=== PATIENT | male | born 1970 | race Caucasian/White ===

== ENCOUNTER 2020-06-13 10:11 | Emergency (ER) | payer OTHER, SELFPAY ==
[2020-06-13] VITALS (13 sets, daily range): BP systolic 134–190; BP diastolic 70–108; PULSE 63–85; RESP 14–16; TEMP 36.6; O2SAT 94–100; BMI 32.5
--- NOTE | 2020-06-13 10:21 | ED.MALEGU ---
HPI - Male Genitourinary General Chief complaint: Urogenital-Male Stated complaint: pain right side back,stomach tender,urine is dark Time Seen by Provider: 06/13/20 10:21 Source: patient and family () Mode of arrival: Ambulatory Limitations: no limitations History of Present Illness HPI Narrative: This is a 49-year-old male who comes to the emergency department with complaint of right flank pain that started Wednesday, patient states it was quite severe and overnight it resolved. And then returned last night. Patient states that it has now moved to the anterior abdomen but is still present in the right flank. He states he has not had any fevers or chills. He has been nauseated but has not had emesis. Patient states he has not had a bowel movement for about 24 hours but believes his last bowel movement was normal. He did note that his urine has been very dark. He has not appreciated any urinary frequency, hesitancy or urgency and denies any discharge or testicular pain. He also denies any rash or skin changes. Patient did state that he did note blood in the toilet at 1 point he is not sure the exact source he thought it may be hemorrhoids, he did not have a bowel movement at that time. Patient does have a history of hypertension, dyslipidemia as well as depression and anxiety. States he has had multiple surgeries including surgery for amblyopia, a lateral duct cyst, hernia repair as an as well as a surgery on his penis which he does not recollect the exact nature. He states he is allergic to lisinopril and penicillin. States he uses THC intermittently, denies any tobacco, alcohol or other illicit. His primary care is Dr. Matos on [facility]. Related Data Previous Rx's Medication Instructions Recorded oxycodone 5 mg PO Q4H PRN #20 tab 06/13/20 tamsulosin [Flomax] 0.4 mg PO DAILY #7 cap 06/13/20 Allergies Allergy/AdvReac Type Severity Reaction Status Date / Time lisinopril Allergy Verified 06/13/20 10:19 Penicillins Allergy Verified 06/13/20 10:19 Review of Systems Review of Systems ROS Unobtainable: All systems reviewed & are unremarkable except as noted in HPI and below Constitutional Constitutional: Denies body ache(s), Denies chills and Denies fever(s) Gastrointestinal Gastrointestinal: Reports abdominal pain, Denies melena, Reports change in bowel habits, Denies diarrhea, Reports nausea, Denies vomiting and Denies hematemesis Genitourinary Genitourinary: Reports as per HPI, Denies difficulty urinating, Denies dysuria, Denies genital pain, Reports flank pain, Denies nocturia, Denies scrotal swelling, Denies testicular pain, Denies urinary frequency, Denies urinary hesitancy, Denies urinary incontinence and Denies urinary urgency Genitourinary: Reports as per HPI, Denies urinary frequency, Denies dysuria, Denies nocturia, Reports flank pain, Denies urinary incontinence, Denies urinary hesitancy and Denies urinary urgency Integumentary/Breasts Skin/Breast: Denies new lesions, Denies erythema, Denies rash and Denies sores Patient History Medical History (Updated 06/13/20 @ 12:03 by Mary Kay Morales DO) Anxiety (Acute) Depression (Acute) Dyslipidemia (Acute) Hypertension (Acute) Social History (Updated 06/13/20 @ 10:37 by Mary Kay Morales DO) marital status: other: Lives on [facility] Smoking Status: Unknown if ever smoked Smoking Status: Unknown if ever smoked alcohol intake frequency: a few times a week Substance Use Type: marijuana Exam Narrative Exam Narrative: GENERAL: Alert and oriented x three, obese male in moderate distress HEENT: Head normocephalic, atraumatic, EOMI, pupils reactive, face symmetric, moist mucous membranes NECK: Supple, full range of motion CARDIOVASCULAR: Regular rate and rhythm without murmurs, rubs or gallops. RESPIRATORY: Breath sounds equal bilaterally, no wheezes rales or rhonchi. ABDOMEN: Soft, positive for moderate right upper quadrant tenderness. Normoactive bowel sounds all 4 quadrants. No guarding or rebound, rigidity, no mass, nondistended. No bruit or pulsatile mass. : Mild right CVA tenderness EXTREMITIES: Normal range of motion, no clubbing or edema. Neurovascularly intact NEUROLOGICAL: Cranial nerves II through XII grossly intact. Moving all extremities SKIN: Warm, dry, no petechiae, no rashes or lesions. Initial Vital Signs Initial Vital Signs: Vital Signs Temperature 97.9 F 06/13/20 10:11 Pulse Rate 83 06/13/20 10:11 Respiratory Rate 14 06/13/20 10:11 Blood Pressure 190/104 H 06/13/20 10:11 Pulse Oximetry 98 06/13/20 10:11 Course Orders Ordered: ED Orders 06/13/20 10:22 Urine Culture Stat Urine Microscopic Stat 06/13/20 10:31 US abdomen complete Stat 06/13/20 10:45 Complete Blood Count AUTO DIFF Stat Comprehensive Metabolic Panel Stat Lipase Stat 06/13/20 13:10 CT kidney ureter bladder (KUB) Stat Discontinued Medications Sodium Chloride (Normal Saline 0.9%) 1,000 mls @ 1,000 mls/hr IV BOLUS ONE Stop: 06/13/20 11:30 Last Infusion: 06/13/20 11:48 Dose: 0 mls/hr Documented by: Admin: 06/13/20 10:40 Dose: 1,000 mls/hr Documented by: DAVID Ketorolac Tromethamine (Toradol) 15 mg IV NOW ONE Stop: 06/13/20 10:32 Last Admin: 06/13/20 10:40 Dose: 15 mg Documented by: DAVID Morphine Sulfate (Morphine) 4 mg IV NOW ONE Stop: 06/13/20 12:20 Last Admin: 06/13/20 12:24 Dose: 4 mg Documented by: RAMO Ondansetron HCl (Zofran) 4 mg IV NOW ONE Stop: 06/13/20 10:32 Last Admin: 06/13/20 10:40 Dose: 4 mg Documented by: DAVID Oxycodone HCl (Percolone) 5 mg PO NOW ONE Stop: 06/13/20 13:11 Last Admin: 06/13/20 13:37 Dose: 5 mg Documented by: RAMO Tamsulosin HCl (Flomax) 0.4 mg PO NOW ONE Stop: 06/13/20 12:36 Last Admin: 06/13/20 12:44 Dose: 0.4 mg Documented by: RAMO Reevaluation(s) Reevaluation #1: recheck after medications, updated patient on lab findings. Time: 11:12 Reevaluation #2: pain is much improved. Time: 13:12 Reevaluation #3: Reviewed patient's CT findings, he does have a 6 mm stone. Discussed he does need keep an eye on his renal function as were unclear if this is his normal baseline or elevated from the kidney stone. His blood pressures improved in the department. Plan for prescription for narcotic pain medication as well as Tylenol given instructions to avoid ibuprofen if able. Also given a referral for Urology and return precautions. Patient and are both at bedside and comfortable with this plan at this time. We also discussed his patient lives on [facility] may wish to stay locally overnight to see how he does before returning home. Time: 14:12 Vital Signs Vital signs: Vital Signs - 8 hr 06/13/20 10:11 06/13/20 10:15 06/13/20 10:17 Temperature 97.9 F Pulse Rate 83 85 Respiratory Rate 14 Blood Pressure 190/104 H 190/104 H Pulse Oximetry 98 98 100 06/13/20 11:30 06/13/20 11:31 06/13/20 11:32 Temperature Pulse Rate 76 78 78 Respiratory Rate 16 Blood Pressure 138/97 H 138/97 H Pulse Oximetry 98 98 98 06/13/20 12:00 06/13/20 12:30 06/13/20 12:32 Temperature Pulse Rate 77 71 Respiratory Rate Blood Pressure 182/108 H Pulse Oximetry 94 99 99 06/13/20 13:00 06/13/20 13:24 06/13/20 13:30 Temperature Pulse Rate 63 75 72 Respiratory Rate Blood Pressure 144/75 H 154/87 H 137/80 Pulse Oximetry 97 98 96 MDM - Male Genitourinary Lab Data Attestation: I reviewed the patient's lab results. Result diagrams: 06/13/20 10:45 06/13/20 10:45 Labs: Lab Results 06/13/20 06/13/20 06/13/20 Range/Units 10:22 10:45 10:45 WBC 13.7 H (4.5-11.0) X10^3/uL RBC 5.01 (4.5-5.9) X10^6/uL Hgb 15.2 (13.5-17.5) g/dL Hct 46.0 (41-53) % MCV 91.9 (80-100) fL MCH 30.4 (26-34) PG MCHC 33.1 (30-36) % RDW 13.9 (11.6-14.8) % Plt Count 217 (150-400) X10^3/uL Neut % (Auto) 82.4 H (50-75) % Lymph % (Auto) 9.3 L (25-40) % [place] % (Auto) 7.2 (3-14) % Eos % (Auto) 0.7 L (2-4) % Baso % (Auto) 0.4 (0-2) % Neut # (Auto) 53484 H (3611-8684) /uL Lymph # (Auto) 1300 (1533-2372) /uL [place] # (Auto) 1000 H (0-900) /uL Eos # (Auto) 100 (0-450) /uL Baso # (Auto) 100 (0-100) /uL Sodium 141 (137-145) mmol/L Potassium 3.8 (3.4-5.1) mmol/L Chloride 104 (98-107) mmol/L Carbon Dioxide 25 (22-32) mmol/L BUN 23 H (9-20) mg/dL Creatinine 1.45 H (0.66-1.25) mg/dL Estimated GFR 51.5 L (>60) mL/min BUN/Creatinine Ratio 15.9 (6-22) Glucose 125 H (70-100) mg/dL Calcium 9.9 (8.4-10.2) mg/dL Total Bilirubin 0.9 (0.2-1.3) mg/dL AST 38 (17-59) IU/L ALT 65 H (<50) IU/L Alkaline Phosphatase 71 (38-126) U/L Total Protein 8.4 H (6.3-8.2) g/dL Albumin 4.9 (3.5-5.0) g/dL Globulin 3.5 (1.7-4.1) g/dL Albumin/Globulin Ratio 1.4 (1.0-2.8) Lipase 96 (23-300) U/L Urine RBC 1-5/hpf (0-5/HPF) Urine WBC 5-10/hpf H (0-5/HPF) Urine Bacteria None seen (None) Urine Mucus 1+ H (Negative) Ur Culture Indicated? Specimen cultured Urine Dip Bedside Urine Glucose Negative Bedside Urine Bilirubin - Negative Bedside Urine Ketone - Negative Urine Specific [place] 1.030 Bedside Urine Occult Blood +++ Bedside Urine pH 6.0 Bedside Urine Protein +/- 15 Bedside Urine Urobilinogen - Negative Bedside Urine Nitrite - Negative Bedside Urine Leukocytes - Negative Esterase Imaging Data US - abdomen: Radiologist's Impression: [address] [address] Ultrasound Report Signed Patient: Jason Washburn KMR#: [id number] : 1970Acct:[id number] Age/Sex: 49 / MDate of Service: 06/13/20 Loc: ED Accession Number: [id number] Procedure: US abdomen complete Ordering Provider: Mary Kay Morales D.O. PROCEDURE: US ABDOMEN COMPLETE INDICATIONS: RIGHT FLANK PAIN AND RIGHT UPPER QUADRANT TENDERNESS TECHNIQUE: Real-time scanning was performed of the abdominal and retroperitoneal organs, with image documentation. COMPARISON: None. FINDINGS: Liver: The liver demonstrates normal size. The liver demonstrates generalized increased echogenicity. This decreases ultrasound sensitivity for detection of hepatic masses. Apparent focal fatty sparing can be seen adjacent to the gallbladder. Gallbladder: No findings of gallstones or sludge are seen. The gallbladder wall is not thickened, measuring 3 mm or less. No specific pericholecystic fluid is seen. The sonographic Holm sign is negative. Biliary ducts: Intrahepatic bile ducts are non-dilated. Extrahepatic bile duct caliber measures 5 mm. Normal is 6-7 mm or less in diameter, or 10 mm or less post-cholecystectomy. Pancreas: Visualized portions of the pancreas are sonographically normal. Spleen: Spleen is normal in size and homogeneous in echotexture. Kidneys: Kidneys are normal in size and echotexture. Right kidney measures 13.4 cm long; left kidney measures 12.7 cm long. No solid masses. Inferior pole of the right kidney, there is a 3.8 cm simple cyst seen. Within the mid inferior aspect of the left kidney, there is a large cystic focus that measures 6.2 x 4.6 x 5.1 cm. Moderate bilateral hydronephrosis is seen. Shadowing stones can be seen involving each kidney. Aorta: Visualized aorta is normal in caliber at less than 3 cm. Iliacs: Not seen. IVC: Intrahepatic inferior vena cava is patent. Miscellaneous: No free abdominal fluid. IMPRESSION: Moderate bilateral hydronephrosis. There is a 3.8 cm simple appearing right renal cyst. Within the left kidney, there is a likely additional prominent cyst seen, although differential diagnosis would include a prominent peripelvic cyst. Non-obstructing bilateral renal stones are seen. The liver demonstrates increased echogenicity. This finding is nonspecific, yet it is most commonly attributed to fatty infiltration. Dictated by: Henok Ward M.D. on 06/13/2020 at 10:47 Approved by: Henok Ward M.D. on 06/13/2020 at 10:[address]: Radiologist's Impression: [address] [address] [address] Scan Report Signed Patient: Jason Washburn KMR#: [id number] : 1970Acct:[id number] Age/Sex: 49 / MDate of Service: 06/13/20 Loc: ED Accession Number: [id number] Procedure: CT kidney ureter bladder (KUB) Ordering Provider: Mary Kay Morales D.O. PROCEDURE: CT KIDNEY URETER BLADDER (KUB) INDICATIONS: kidney stone TECHNIQUE: Noncontrast 5 mm thick sections acquired from the diaphragms to the symphysis. 5 mm thick coronal and sagittal reformats were then performed. For radiation dose reduction, the following was used: automated exposure control, adjustment of mA and/or kV according to patient size. COMPARISON: None. FINDINGS: Image quality: Excellent. Lung bases: Lung bases are clear. Heart size is normal. Atherosclerotic calcifications noted in the visualized coronary vasculature. Urinary system: Both kidneys are normal in size. 6 millimeter stone in the proximal right ureter causing moderate right-sided hydronephrosis. 1.3 x 1.5 by 1.0 centimeter nonobstructing cluster of stones noted in the upper pole of the left kidney. 6 millimeter and 5 millimeter nonobstructing stones noted in the midpole of the left kidney. Bladder wall thickness is normal; no calcified bladder stones. Other solid organs: Liver is normal in size. Gallbladder is within normal limits. Pancreas is normal in contours. Spleen is normal in size. No adrenal nodules. Peritoneum and bowel: Unenhanced bowel loops demonstrate normal wall thickness and caliber. No free fluid or air. The appendix is normal. Nodes and vessels: No retroperitoneal or mesenteric adenopathy by size criteria. Aorta and inferior vena cava are normal in caliber. Scattered atherosclerotic calcifications involving the abdominal and pelvic vasculature. Abdominal wall: No ventral hernias. Pelvis: No free pelvic fluid. No inguinal adenopathy. Small fat containing left inguinal hernia. Bones: No suspicious bony lesions. No vertebral body compression fractures. Spine degenerative disc disease and facet arthropathy. IMPRESSION: 1. 6 millimeter stone in the proximal right ureter causing moderate right-sided hydronephrosis. 2. Multiple nonobstructing left renal stones. Dictated by: Ashley Myers MD, PhD on 06/13/2020 at 13:31 Approved by: Ashley Myers MD, PhD on 06/13/2020 at 13:50 [facility] Narrative Medical decision making narrative: Patients BP is quite elevated initially on evaluation, he has not had all of his BP meds today. Will recheck after pain medication, patient proved with Toradol but then his symptoms recurred. He has improved significantly after dose of morphine and 1 dose of oral pain medication. CT abdomen and pelvis was obtained as patient lives on [facility] and returning if he had worsening symptoms would be quite difficult for the patient and possibly impossible overnight. A 6 mm stone is noted on the proximal right ureter, right-sided hydronephrosis. Patient and I also discussed that he has what appear to be stones in both kidneys as well as renal cyst that is noted on ultrasound. We also discussed that patient does need follow-up to make sure his renal function improves or stays stable and that his stone is treated adequately, he was started on Flomax given a prescription for oxycodone. Urine was cultured although he has not had any infectious symptoms and is negative for nitrates and leuks, will hold any antibiotics at this time. Discharge Plan Departure Patient Disposition: Home Clinical Impression: Kidney stone, Cyst of right kidney, Renal cyst, left Instructions: DI for Kidney Stones Activity Restrictions/Additional Instructions: Follow-up with primary care or Urology if your symptoms have not resolved in the next 2-3 days. Your creatinine is slightly elevated I would recommend having a recheck of her renal function in the next week. Your imaging shows cysts bilaterally and also stones in the kidney themselves. Take flomax once daily. You may continue with Tylenol up to a 1000 mg every 8 hours as needed for pain, you may take 3000 mg total in 24 hours. If this is not adequate for pain control you may take pain medication as prescribed this medication can make you sleepy do not drive, perform hazardous activities or make any major decisions while taking it. I would recommend taking a stool softener while taking any narcotic pain medication. Return to the ER for fevers greater 100.4 F, uncontrolled pain, persistent vomiting, black or bloody stools, new weakness, inability urinate or other new or concerning symptoms. Prescriptions: New tamsulosin [Flomax] 0.4 mg capsule 0.4 mg PO DAILY Qty: 7 RF: 0 oxycodone 5 mg tablet 5 mg PO Q4H PRN (Reason: pain) Qty: 20 RF: 0 Referrals: Gato Chadwick MD [Physician] - Ronnie Matos MD [Primary Care Provider] -
--- NOTE | 2020-06-13 10:31 | DI.US.S_ITS ---
PROCEDURE: US ABDOMEN COMPLETE INDICATIONS: RIGHT FLANK PAIN AND RIGHT UPPER QUADRANT TENDERNESS TECHNIQUE: Real-time scanning was performed of the abdominal and retroperitoneal organs, with image documentation. COMPARISON: None. FINDINGS: Liver: The liver demonstrates normal size. The liver demonstrates generalized increased echogenicity. This decreases ultrasound sensitivity for detection of hepatic masses. Apparent focal fatty sparing can be seen adjacent to the gallbladder. Gallbladder: No findings of gallstones or sludge are seen. The gallbladder wall is not thickened, measuring 3 mm or less. No specific pericholecystic fluid is seen. The sonographic Holm sign is negative. Biliary ducts: Intrahepatic bile ducts are non-dilated. Extrahepatic bile duct caliber measures 5 mm. Normal is 6-7 mm or less in diameter, or 10 mm or less post-cholecystectomy. Pancreas: Visualized portions of the pancreas are sonographically normal. Spleen: Spleen is normal in size and homogeneous in echotexture. Kidneys: Kidneys are normal in size and echotexture. Right kidney measures 13.4 cm long; left kidney measures 12.7 cm long. No solid masses. Inferior pole of the right kidney, there is a 3.8 cm simple cyst seen. Within the mid inferior aspect of the left kidney, there is a large cystic focus that measures 6.2 x 4.6 x 5.1 cm. Moderate bilateral hydronephrosis is seen. Shadowing stones can be seen involving each kidney. Aorta: Visualized aorta is normal in caliber at less than 3 cm. Iliacs: Not seen. IVC: Intrahepatic inferior vena cava is patent. Miscellaneous: No free abdominal fluid. IMPRESSION: Moderate bilateral hydronephrosis. There is a 3.8 cm simple appearing right renal cyst. Within the left kidney, there is a likely additional prominent cyst seen, although differential diagnosis would include a prominent peripelvic cyst. Non-obstructing bilateral renal stones are seen. The liver demonstrates increased echogenicity. This finding is nonspecific, yet it is most commonly attributed to fatty infiltration. Dictated by: Henok Ward M.D. on 06/13/2020 at 10:47 Approved by: Henok Ward M.D. on 06/13/2020 at 10:50
[2020-06-13] MEDS: KETOROLAC 60 MG/2 ML VIAL 15 MG IV (10:40)
[2020-06-13] MEDS: ONDANSETRON 4 MG/2 ML INJ IV (10:40)
[2020-06-13] MEDS: SODIUM CHLORIDE 0.9% 1,000 ML 1000 ML IV (10:40)
[2020-06-13 10:45] LABS: Bacteria Urine None Seen
[2020-06-13 10:55] LABS: Add Manual Diff / Slide Review NO; Basophils Absolute Auto 100 /uL (0-100); Basophils Percent Auto 0.4 % (0-2); Eosinophils Absolute Auto 100 /uL (0-450); Eosinophils Percent Auto 0.7 % (2-4); Hemoglobin 15.2 g/dL (13.5-17.5); Lymphocytes Absolute Auto 1300 /uL (1100-4500); Lymphocytes Percent Auto 9.3 % (25-40); Mean Corpuscular HGB Conc 33.1 % (30-36); Mean Corpuscular Hemoglobin 30.4 PG (26-34); Mean Corpuscular Volume 91.9 fL (80-100); Monocytes Absolute Auto 1000 /uL (0-900); Monocytes Percent Auto 7.2 % (3-14); Neutrophils Absolute Auto 11300 /uL (1500-7000); Neutrophils Percent Auto 82.4 % (50-75); Platelet Count 217 X10^3/uL (150-400); Red Blood Cell Count 5.01 X10^6/uL (4.5-5.9); Red Cell Distribution Width 13.9 % (11.6-14.8); White Blood Cell Count 13.7 X10^3/uL (4.5-11.0)
[2020-06-13 11:03] LABS: Culture Indicated Urine Specimen Cultured; Mucus Urine 1+ (Negative); RBC Urine 1-5/HPF (0-5/HPF); WBC Urine 5-10/HPF (0-5/HPF)
[2020-06-13 11:07] LABS: Alanine Aminotransferase 65 IU/L (<50); Albumin 4.9 g/dL (3.5-5.0); Albumin Globulin Ratio 1.4 (1.0-2.8); Alkaline Phosphatase 71 U/L (38-126); Aspartate Aminotransferase 38 IU/L (17-59); BUN Creatinine Ratio 15.9 (6-22); Bilirubin Total 0.9 mg/dL (0.2-1.3); Blood Urea Nitrogen 23 mg/dL (9-20); Calcium 9.9 mg/dL (8.4-10.2); Carbon Dioxide 25 mmol/L (22-32); Chloride 104 mmol/L (98-107); Estimated Glomerular Filt Rate 51.5 mL/min (>60); Globulin 3.5 g/dL (1.7-4.1); Glucose 125 mg/dL (70-100); HEMOLYSIS < 15 (0-50); Lipase 96 U/L (23-300); Potassium 3.8 mmol/L (3.4-5.1); Sodium 141 mmol/L (137-145); Total Protein 8.4 g/dL (6.3-8.2)
[2020-06-13] MEDS: MORPHINE 4 MG/ML INJ IV (12:24)
[2020-06-13] MEDS: TAMSULOSIN 0.4 MG CAPSULE PO (12:44)
--- NOTE | 2020-06-13 13:10 | DI.CT.S_ITS ---
PROCEDURE: CT KIDNEY URETER BLADDER (KUB) INDICATIONS: kidney stone TECHNIQUE: Noncontrast 5 mm thick sections acquired from the diaphragms to the symphysis. 5 mm thick coronal and sagittal reformats were then performed. For radiation dose reduction, the following was used: automated exposure control, adjustment of mA and/or kV according to patient size. COMPARISON: None. FINDINGS: Image quality: Excellent. Lung bases: Lung bases are clear. Heart size is normal. Atherosclerotic calcifications noted in the visualized coronary vasculature. Urinary system: Both kidneys are normal in size. 6 millimeter stone in the proximal right ureter causing moderate right-sided hydronephrosis. 1.3 x 1.5 by 1.0 centimeter nonobstructing cluster of stones noted in the upper pole of the left kidney. 6 millimeter and 5 millimeter nonobstructing stones noted in the midpole of the left kidney. Bladder wall thickness is normal; no calcified bladder stones. Other solid organs: Liver is normal in size. Gallbladder is within normal limits. Pancreas is normal in contours. Spleen is normal in size. No adrenal nodules. Peritoneum and bowel: Unenhanced bowel loops demonstrate normal wall thickness and caliber. No free fluid or air. The appendix is normal. Nodes and vessels: No retroperitoneal or mesenteric adenopathy by size criteria. Aorta and inferior vena cava are normal in caliber. Scattered atherosclerotic calcifications involving the abdominal and pelvic vasculature. Abdominal wall: No ventral hernias. Pelvis: No free pelvic fluid. No inguinal adenopathy. Small fat containing left inguinal hernia. Bones: No suspicious bony lesions. No vertebral body compression fractures. Spine degenerative disc disease and facet arthropathy. IMPRESSION: 1. 6 millimeter stone in the proximal right ureter causing moderate right-sided hydronephrosis. 2. Multiple nonobstructing left renal stones. Dictated by: Ashley Myers MD, PhD on 06/13/2020 at 13:31 Approved by: Ashley Myers MD, PhD on 06/13/2020 at 13:50
[2020-06-13] MEDS: OXYCODONE IR 5 MG TABLET PO (13:37)
== END 2020-06-13 14:27 | disposition home or self-care (01) ==
PROVIDERS: Emergency Provider Emergency Medicine; PCP Family Medicine
DX: N20.0 Calculus of kidney (principal); N28.1 Cyst of kidney, acquired; I10 Essential (primary) hypertension; R11.0 Nausea; F41.9 Anxiety disorder, unspecified; F32.9 Major depressive disorder, single episode, unspecified; E66.9 Obesity, unspecified
CPT/HCPCS: 36415; 74176; 76700; 80053; 81003; 81015; 83690; 85025; 87086; 96361; 96374; 96375; 99284; 99285; J1885; J2270; J2405

== ENCOUNTER → 2021-03-27 08:05 | Outpatient (CLI) | payer OTHER, SELFPAY ==
[2021-03-27 19:20] LABS: Alanine Aminotransferase 41 IU/L (<50); Albumin 4.5 g/dL (3.5-5.0); Albumin Globulin Ratio 1.5 (1.0-2.8); Alkaline Phosphatase 73 U/L (38-126); Aspartate Aminotransferase 38 IU/L (17-59); BUN Creatinine Ratio 19.1 (6-22); Bilirubin Total 1.1 mg/dL (0.2-1.3); Blood Urea Nitrogen 18 mg/dL (9-20); Carbon Dioxide 27 mmol/L (22-32); Chloride 103 mmol/L (98-107); Cholesterol 152 mg/dL (140-199); Estimated Glomerular Filt Rate > 60.0 mL/min (>60); Globulin 3.1 g/dL (1.7-4.1); Glucose 102 mg/dL (70-100); HDL Cholesterol 50 mg/dL (40-60); HEMOLYSIS < 15 (0-50); LDL Cholesterol Calculated 85 mg/dL (<100); Potassium 4.2 mmol/L (3.4-5.1); Sodium 140 mmol/L (137-145); Total Protein 7.6 g/dL (6.3-8.2); Triglycerides 87 mg/dL (35-150)
[2021-03-27 19:43] LABS: Add Manual Diff / Slide Review NO; Basophils Absolute Auto 0 /uL (0-100); Basophils Percent Auto 0.6 % (0-2); Eosinophils Absolute Auto 300 /uL (0-450); Eosinophils Percent Auto 4.1 % (2-4); Hematocrit 47.6 % (41-53); Lymphocytes Absolute Auto 2100 /uL (1100-4500); Lymphocytes Percent Auto 27.6 % (25-40); Mean Corpuscular HGB Conc 33.7 % (30-36); Mean Corpuscular Hemoglobin 31.7 PG (26-34); Mean Corpuscular Volume 93.9 fL (80-100); Monocytes Absolute Auto 700 /uL (0-900); Monocytes Percent Auto 8.7 % (3-14); Neutrophils Absolute Auto 4600 /uL (1500-7000); Platelet Count 202 X10^3/uL (150-400); Red Blood Cell Count 5.07 X10^6/uL (4.5-5.9); Red Cell Distribution Width 13.8 % (11.6-14.8); White Blood Cell Count 7.7 X10^3/uL (4.5-11.0)
[2021-03-27 20:07] LABS: Hemoglobin A1C% w Est Avg Glu 5.3 % (4.0-6.0)
== END ==
PROVIDERS: PCP Family Medicine; Visit Provider Family Medicine
DX: E78.5 Hyperlipidemia, unspecified (principal); F32.9 Major depressive disorder, single episode, unspecified; F41.9 Anxiety disorder, unspecified; I10 Essential (primary) hypertension; R73.01 Impaired fasting glucose
CPT/HCPCS: 80053; 80061; 83036; 85025

== ENCOUNTER 2022-02-19 14:18 | Emergency (ER) | payer OTHER, SELFPAY ==
[2022-02-19] VITALS (8 sets, daily range): BP systolic 177–206; BP diastolic 112–119; PULSE 79–91; RESP 15–22; TEMP 36.4; O2SAT 94–98; BMI 34.3
--- NOTE | 2022-02-19 14:28 | DI.RAD.S_ITS ---
PROCEDURE: XR CHEST 2V INDICATIONS: shortness of breath TECHNIQUE: 2 views of the chest were acquired. COMPARISON: None. FINDINGS: Surgical changes and devices: None. Lungs and pleura: Mild left basilar atelectasis. Lungs are otherwise clear. No pleural effusions or pneumothorax. Mediastinum: Mediastinal contours are normal. Heart size is normal. Bones and chest wall: No suspicious bony abnormalities. Soft tissues appear unremarkable. IMPRESSION: No acute cardiopulmonary disease. Dictated by: Debi Paulino M.D. on 02/19/2022 at 15:02 Approved by: Debi Paulino M.D. on 02/19/2022 at 15:05
[2022-02-19 14:47] LABS: Add Manual Diff / Slide Review NO; Basophils Absolute Auto 100 /uL (0-100); Basophils Percent Auto 0.9 % (0-2); Eosinophils Absolute Auto 300 /uL (0-450); Eosinophils Percent Auto 3.2 % (2-4); Hematocrit 47.3 % (41-53); Hemoglobin 15.9 g/dL (13.5-17.5); Lymphocytes Absolute Auto 2300 /uL (1100-4500); Lymphocytes Percent Auto 28.6 % (25-40); Mean Corpuscular HGB Conc 33.7 % (30-36); Mean Corpuscular Hemoglobin 30.7 PG (26-34); Mean Corpuscular Volume 90.9 fL (80-100); Monocytes Absolute Auto 600 /uL (0-900); Monocytes Percent Auto 7.5 % (3-14); Neutrophils Absolute Auto 4800 /uL (1500-7000); Neutrophils Percent Auto 59.8 % (50-75); Platelet Count 218 X10^3/uL (150-400)
--- NOTE | 2022-02-19 14:52 | ED_ITS ---
HPI - Chest Pain General Chief Complaint: Chest Pain Stated Complaint: Chest pain, SOB, fatigue Time Seen by Provider: 02/19/22 14:51 Source: patient Mode of arrival: Ambulatory Limitations: no limitations History of Present Illness HPI narrative: Patient is a 51-year-old male history of hypertension hyperlipidemia presenting with chest discomfort. He said he had COVID about 6 weeks ago he has tested positive. About 2-3 weeks ago he started having some right-sided chest discomfort. He gets dyspnea with exertion at times. He denies any orthopnea. No peripheral swelling. He has not had any travel recently. He denies any fever chills or cough. He describes chest pain as tightness. It can last anywhere from seconds to an hour. He says he gets it unprovoked and can happen any time. Sometimes multiple times a day. Related Data Home Medications Medication Instructions Recorded Confirmed amlodipine 10 mg tablet 10 mg PO DAILY 03/18/21 03/18/21 bupropion HCl PO 03/20/21 03/20/21 hydrochlorothiazide PO 03/20/21 03/20/21 losartan PO 03/20/21 03/20/21 oxycodone 5 mg tablet 5 mg PO Q4H PRN pain 03/20/21 rosuvastatin PO 03/20/21 03/20/21 zolpidem PO 03/20/21 03/20/21 Allergies Allergy/AdvReac Type Severity Reaction Status Date / Time lisinopril Allergy Verified 02/19/22 14:26 Penicillins Allergy Verified 02/19/22 14:26 Review of Systems Review of Systems Narrative: GENERAL: Denies chills, fatigue, malaise, fever, sweats, travel HEENT: Denies sinus pain, ear pain, sore throat, difficulty swallowing, neck pain RESPIRATORY: Denies dyspnea, cough, wheezing, hemoptysis, sputum. CARDIOVASCULAR: See HPI GASTROINTESTINAL: Denies nausea, vomiting, abdominal pain, diarrhea, constipat ion, melena. : Denies dysuria, frequency, incontinence, hematuria, urinary retention, flank pain. MUSCULOSKELETAL: Denies weakness, joint pain, or bony pain SKIN: No rash, no erythema, no pruritus NEUROLOGIC: Denies weakness, dizziness, headache, numbness, change in speech, confusion PSYCHIATRIC: No concerning psychosocial issues. 12 point review of systems is negative except for those stated above and HPI Patient History Medical History (Updated 02/19/22 @ 19:19 by Kristine Aguirre DO) Anxiety Depression Dyslipidemia Hypertension Social History (Updated 06/13/20 @ 10:37 by Mary Kay Morales DO) marital status: other: Lives on [facility] Smoking Status: Unknown if ever smoked Smoking Status: Unknown if ever smoked alcohol intake frequency: 3 or more drinks per day Substance Use Type: marijuana Exam Initial Vital Signs Initial Vital Signs: Vital Signs Temperature 97.6 F 02/19/22 14:26 Pulse Rate 91 H 02/19/22 14:26 Respiratory Rate 22 02/19/22 14:26 Blood Pressure 205/119 H 02/19/22 14:26 Pulse Oximetry 98 02/19/22 14:26 Oxygen Delivery Method 02/19/22 14:26 GENERAL: Alert pleasant 51-year-old male BMI 34 and in no acute distress. HEENT: Head atraumatic,EOMI, pupils reactive, face symmetric, moist mucous membranes CARDIOVASCULAR: Regular rate and rhythm without murmurs, rubs or gallops. RESPIRATORY: Breath sounds equal bilaterally, no wheezes rales or rhonchi. ABDOMEN: Soft, nontender. Normoactive bowel sounds all 4 quadrants. No guarding or rebound. EXTREMITIES: Normal range of motion, no clubbing or edema. Neurovascularly intact NEUROLOGICAL: Alert and oriented x4.Normal gait and speech. SKIN: Warm, dry, no laceration, no petechiae, no rashes or lesions. Course Orders Ordered: ED Orders 02/19/22 14:28 XR chest 2V Stat EKG-12 Lead Stat Measure peak expiratory flow ONCE RT Consult Eval and Treat Now 02/19/22 14:34 D Dimer Stat 02/19/22 14:36 Complete Blood Count AUTO DIFF Stat Comprehensive Metabolic Panel Stat Lactate (Lactic Acid) Stat NT-proBNP (BNP-Adult 18+) Stat Prothrombin Time INR Stat Troponin & CK Cardiac Panel Stat 02/19/22 18:25 Trop I [Troponin I] Stat 02/19/22 19:10 COVID19 -Nasal RAPID/Pre-Proc Stat 02/19/22 19:36 EKG-12 Lead Stat Discontinued Medications Albuterol (Albuterol Hfa Prepack) 1 box MISC SEEINSTR ONE Stop: 02/19/22 19:26 Last Admin: 02/19/22 19:29 Dose: 1 box Documented By: PRASHANT Albuterol/Ipratropium (Albuterol/Ipratropium 3 Ml Ampul) 3 ml INH NOW ONE Stop: 02/19/22 18:23 Last Admin: 02/19/22 19:22 Dose: 3 ml Documented By: PRASHANT Vital Signs Vital signs: Vital Signs - 8 hr 02/19/22 14:26 02/19/22 14:45 02/19/22 14:45 Temperature 97.6 F Pulse Rate 91 H 91 H Respiratory Rate 22 15 Blood Pressure 205/119 H 206/113 H Pulse Oximetry 98 98 Oxygen Delivery Method Room Air 02/19/22 15:00 02/19/22 15:30 02/19/22 16:00 Temperature Pulse Rate 87 85 80 Respiratory Rate 19 21 Blood Pressure Pulse Oximetry 97 97 94 Oxygen Delivery Method 02/19/22 16:30 02/19/22 19:05 02/19/22 19:50 Temperature Pulse Rate 79 80 82 Respiratory Rate 18 Blood Pressure 177/112 H Pulse Oximetry 95 96 Oxygen Delivery Method Room Air Room Air MDM - Chest Pain Lab Data Result diagrams: 02/19/22 14:36 02/19/22 14:36 Labs: Lab Results 02/19/22 02/19/22 02/19/22 Range/Units 14:34 14:36 14:36 WBC 8.0 (4.5-11.0) X10^3/uL RBC 5.20 (4.5-5.9) X10^6/uL Hgb 15.9 (13.5-17.5) g/dL Hct 47.3 (41-53) % MCV 90.9 (80-100) fL MCH 30.7 (26-34) PG MCHC 33.7 (30-36) % RDW 15.0 H (11.6-14.8) % Plt Count 218 (150-400) X10^3/uL Neut % (Auto) 59.8 (50-75) % Lymph % (Auto) 28.6 (25-40) % [place] % (Auto) 7.5 (3-14) % Eos % (Auto) 3.2 (2-4) % Baso % (Auto) 0.9 (0-2) % Neut # (Auto) 4800 (1768-2495) /uL Lymph # (Auto) 2300 (7487-7311) /uL Dod[place] # (Auto) 600 (0-900) /uL Eos # (Auto) 300 (0-450) /uL Baso # (Auto) 100 (0-100) /uL PT (10.1-12.7) SECONDS INR (0.9-1.3) D-Dimer < 200 (<230) ng/mL Sodium 142 (137-145) mmol/L Potassium 3.8 (3.4-5.1) mmol/L Chloride 104 (98-107) mmol/L Carbon Dioxide 23 (22-32) mmol/L BUN 21 H (9-20) mg/dL Creatinine 0.93 (0.66-1.25) mg/dL Estimated GFR > 60 (>60) mL/min BUN/Creatinine Ratio 22.6 H (6-22) Glucose 149 H (70-100) mg/dL Lactate (0.7-2.1) mmol/L Calcium 9.4 (8.4-10.2) mg/dL Total Bilirubin 1.1 (0.2-1.3) mg/dL AST 94 H (17-59) IU/L ALT 167 H (<50) IU/L Alkaline Phosphatase 75 (38-126) U/L Total Creatine Kinase (55-170) U/L CK-MB (CK-2) (<2.37) ng/mL CK-MB (CK-2) Rel Index (1.5-5.0) % Troponin I (0.01-0.034) ng/mL NT-Pro-B Natriuret Pep (<125) pg/mL Total Protein 8.1 (6.3-8.2) g/dL Albumin 4.6 (3.5-5.0) g/dL Globulin 3.5 (1.7-4.1) g/dL Albumin/Globulin Ratio 1.3 (1.0-2.8) SARS-CoV-2 (PCR) (Negative) 02/19/22 02/19/22 02/19/22 Range/Units 14:36 14:36 14:36 WBC (4.5-11.0) X10^3/uL RBC (4.5-5.9) X10^6/uL Hgb (13.5-17.5) g/dL Hct (41-53) % MCV (80-100) fL MCH (26-34) PG MCHC (30-36) % RDW (11.6-14.8) % Plt Count (150-400) X10^3/uL Neut % (Auto) (50-75) % Lymph % (Auto) (25-40) % Dod[place]idge % (Auto) (3-14) % Eos % (Auto) (2-4) % Baso % (Auto) (0-2) % Neut # (Auto) (4722-5620) /uL Lymph # (Auto) (3798-2376) /uL [place]idge # (Auto) (0-900) /uL Eos # (Auto) (0-450) /uL Baso # (Auto) (0-100) /uL PT 12.3 (10.1-12.7) SECONDS INR 1.1 (0.9-1.3) D-Dimer (<230) ng/mL Sodium (137-145) mmol/L Potassium (3.4-5.1) mmol/L Chloride (98-107) mmol/L Carbon Dioxide (22-32) mmol/L BUN (9-20) mg/dL Creatinine (0.66-1.25) mg/dL Estimated GFR (>60) mL/min BUN/Creatinine Ratio (6-22) Glucose (70-100) mg/dL Lactate 1.8 (0.7-2.1) mmol/L Calcium (8.4-10.2) mg/dL Total Bilirubin (0.2-1.3) mg/dL AST (17-59) IU/L ALT (<50) IU/L Alkaline Phosphatase (38-126) U/L Total Creatine Kinase 269 H (55-170) U/L CK-MB (CK-2) 1.63 (<2.37) ng/mL CK-MB (CK-2) Rel Index 0.6 L (1.5-5.0) % Troponin I < 0.012 (0.01-0.034) ng/mL NT-Pro-B Natriuret Pep 37 (<125) pg/mL Total Protein (6.3-8.2) g/dL Albumin (3.5-5.0) g/dL Globulin (1.7-4.1) g/dL Albumin/Globulin Ratio (1.0-2.8) SARS-CoV-2 (PCR) (Negative) 02/19/22 02/19/22 Range/Units 18:25 19:10 WBC (4.5-11.0) X10^3/uL RBC (4.5-5.9) X10^6/uL Hgb (13.5-17.5) g/dL Hct (41-53) % MCV (80-100) fL MCH (26-34) PG MCHC (30-36) % RDW (11.6-14.8) % Plt Count (150-400) X10^3/uL Neut % (Auto) (50-75) % Lymph % (Auto) (25-40) % Dod[place]idge % (Auto) (3-14) % Eos % (Auto) (2-4) % Baso % (Auto) (0-2) % Neut # (Auto) (0392-3914) /uL Lymph # (Auto) (4380-3252) /uL [place] # (Auto) (0-900) /uL Eos # (Auto) (0-450) /uL Baso # (Auto) (0-100) /uL PT (10.1-12.7) SECONDS INR (0.9-1.3) D-Dimer (<230) ng/mL Sodium (137-145) mmol/L Potassium (3.4-5.1) mmol/L Chloride (98-107) mmol/L Carbon Dioxide (22-32) mmol/L BUN (9-20) mg/dL Creatinine (0.66-1.25) mg/dL Estimated GFR (>60) mL/min BUN/Creatinine Ratio (6-22) Glucose (70-100) mg/dL Lactate (0.7-2.1) mmol/L Calcium (8.4-10.2) mg/dL Total Bilirubin (0.2-1.3) mg/dL AST (17-59) IU/L ALT (<50) IU/L Alkaline Phosphatase (38-126) U/L Total Creatine Kinase (55-170) U/L CK-MB (CK-2) (<2.37) ng/mL CK-MB (CK-2) Rel Index (1.5-5.0) % Troponin I 0.013 (0.01-0.034) ng/mL NT-Pro-B Natriuret Pep (<125) pg/mL Total Protein (6.3-8.2) g/dL Albumin (3.5-5.0) g/dL Globulin (1.7-4.1) g/dL Albumin/Globulin Ratio (1.0-2.8) SARS-CoV-2 (PCR) Negative (Negative) Imaging Data Chest x-ray: Radiologist's Impression: RU [place] [id number] XRay Report Signed Patient: Jason Washburn MR#: [id number] : 1970 Acct:[id number] Age/Sex: 51 / M Date of Service: 02/19/22 Loc: ED Accession Number: [id number] ?? Procedure: XR chest 2V Ordering Provider: Kristine Aguirre D.O. PROCEDURE:? XR CHEST 2V ? INDICATIONS:? shortness of breath ? TECHNIQUE:? 2 views of the chest were acquired.? ? COMPARISON:? None. ? FINDINGS:? ? Surgical changes and devices:? None.? ? Lungs and pleura:? Mild left basilar atelectasis.? Lungs are otherwise clear.? No pleural effusions or pneumothorax.? ? Mediastinum:? Mediastinal contours are normal.? Heart size is normal.? ? Bones and chest wall:? No suspicious bony abnormalities.? Soft tissues appear unremarkable.? ? IMPRESSION:? No acute cardiopulmonary disease. ? ? Dictated by: Debi Paulino M.D. on 02/19/2022 at 15:02 ? ? ECG Data Interpretation: Sinus rhythm with PVCs rate 89 PA interval 146 QRS S1 [address] EKG 2. Sinus rhythm with PVCs no ST changes rate 85 similar to previous MDM Narrative Medical decision making narrative: Patient has multiple risk factors for cardiac disease. Symptoms have been ongoing for a while. 2 troponins are negative PVCs are noted on EKG and on mo nitor. He has negative D-dimer and BNP. He is given a trial DuoNeb treatment here in the ED to see if helps his breathing. I think some of what he is experiencing is PVC related. They are quite regular. Patient actually had significant improvement with albuterol. He has given spacer teaching and inhaler to go home with. Discharge Plan Departure Patient Disposition: Home Clinical Impression: Frequent PVCs, Atypical chest pain Instructions: DI for Atypical Chest Pain, DI for Premature Ventricular Beats Activity Restrictions/Additional Instructions: *You have been diagnosed with PVCs and atypical chest pain *What to do: At this time he you may require further outpatient testing such as a stress test. However no further testing to be done in the emergency department. *Continue to take medications as directed Try using albuterol inhaler 1-2 puffs with spacer every 4 hours if needed for shortness of breath *Follow up with your primary care provider in 2-3 days or call [phone] *Return to ER if you should have increasing chest pain palpitations dizziness lightheadedness shortness of breath, worsening shortness of breath despite inhaler or any new, worsening or concerning symptoms Prescriptions: No Action amlodipine 10 mg tablet 10 mg PO DAILY oxycodone 5 mg tablet 5 mg PO Q4H PRN (Reason: pain) rosuvastatin PO losartan PO hydrochlorothiazide PO bupropion HCl PO zolpidem PO Referrals: Jules Negrete MD [Primary Care Provider] - Visit Report Forms: Patient Portal/API
[2022-02-19 14:54] LABS: INR 1.1 (0.9-1.3); Prothrombin Time 12.3 SECONDS (10.1-12.7)
[2022-02-19 14:59] LABS: Creatine Kinase 269 U/L (55-170)
[2022-02-19 15:00] LABS: Lactate (Lactic Acid) 1.8 mmol/L (0.7-2.1)
[2022-02-19 15:01] LABS: Alanine Aminotransferase 167 IU/L (<50); Albumin 4.6 g/dL (3.5-5.0); Albumin Globulin Ratio 1.3 (1.0-2.8); Alkaline Phosphatase 75 U/L (38-126); Aspartate Aminotransferase 94 IU/L (17-59); BUN Creatinine Ratio 22.6 (6-22); Bilirubin Total 1.1 mg/dL (0.2-1.3); Blood Urea Nitrogen 21 mg/dL (9-20); Calcium 9.4 mg/dL (8.4-10.2); Carbon Dioxide 23 mmol/L (22-32); Chloride 104 mmol/L (98-107); Estimated Glomerular Filt Rate > 60 mL/min (>60); Globulin 3.5 g/dL (1.7-4.1); Glucose 149 mg/dL (70-100); HEMOLYSIS < 15 (0-50); Potassium 3.8 mmol/L (3.4-5.1); Sodium 142 mmol/L (137-145); Total Protein 8.1 g/dL (6.3-8.2)
[2022-02-19 15:12] LABS: NT-proBNP (BNP-Adult 18+) 37 pg/mL (<125); Troponin I < 0.012 ng/mL (0.01-0.034)
[2022-02-19 15:15] LABS: CKMB % Relative Index 0.6 % (1.5-5.0); Creatine Kinase MB 1.63 ng/mL (<2.37)
[2022-02-19 15:53] LABS: D Dimer < 200 ng/mL (<230)
[2022-02-19 19:03] LABS: Troponin I 0.013 ng/mL (0.01-0.034)
[2022-02-19] MEDS: ALBUTEROL/IPRATROPIUM 3 ML AMPUL INH (19:22)
[2022-02-19] MEDS: ALBUTEROL HFA PREPACK 1 BOX MISC (19:29)
[2022-02-19 19:52] LABS: COVID19 -Nasal RAPID Negative (Negative)
== END 2022-02-19 19:51 | disposition home or self-care (01) ==
PROVIDERS: Emergency Provider Emergency Medicine; PCP Family Medicine
DX: R07.89 Other chest pain (principal); I49.3 Ventricular premature depolarization; Z86.16 Personal history of COVID-19; Z20.822 Contact with and (suspected) exposure to COVID-19
CPT/HCPCS: 71046; 80053; 82550; 82553; 83605; 83880; 84484; 85025; 85379; 85610; 87635; 93005; 93010; 94640; 99284; C9803

== ENCOUNTER → 2022-05-07 11:32 | Outpatient (CLI) | payer OTHER, SELFPAY ==
--- NOTE | 2022-05-07 11:35 | DI.RAD.S_ITS ---
PROCEDURE: XR KUB INDICATIONS: Kidney stones TECHNIQUE: One view of the abdomen acquired. COMPARISON: [facility], CT, CT KIDNEY URETER BLADDER (KUB), 06/13/2020, 13:11. FINDINGS: Surgical changes and devices: None. Bowel: Bowel gas pattern is normal. Soft tissues: No suspicious abdominal calcifications. Visualized solid organ contours appear normal in size. 2 calcifications projected over the inferior pole of the left kidney, largest measuring 9 mm. Bones: No suspicious bony lesions. IMPRESSION: 2 calcifications projected over the inferior pole of the left kidney, largest measuring 9 mm. Dictated by: Jesús Pate [facility] Interpreted: Debi Paulino MD on 05/07/2022 at 16:42 Transcribed by: TRAVIS on 05/07/2022 at 16:43 Approved by: Debi Paulino M.D. on 05/07/2022 at 17:31
== END ==
PROVIDERS: PCP Family Medicine; Referring Provider Urology; Visit Provider Urology
DX: N28.89 Other specified disorders of kidney and ureter (principal); Q54.1 Hypospadias, penile; R35.1 Nocturia; R39.9 Unspecified symptoms and signs involving the genitourinary system; E66.09 Other obesity due to excess calories; G47.33 Obstructive sleep apnea (adult) (pediatric); Z87.442 Personal history of urinary calculi
CPT/HCPCS: 51798; 74018; 81002; 99214

== ENCOUNTER → 2022-06-02 08:40 | Outpatient (CLI) | payer OTHER, SELFPAY ==
--- NOTE | 2022-06-02 08:41 | DI.CT.S_ITS ---
PROCEDURE: CT KIDNEY URETER BLADDER (KUB) INDICATIONS: Personal history of urinary calculi TECHNIQUE: Axial sections were acquired from the lung bases to the pubic symphysis. Coronal and sagittal reformats were performed. For radiation dose reduction, the following was used: automated exposure control, adjustment of mA and/or kV according to patient size. COMPARISON: [facility], CT, CT KIDNEY URETER BLADDER (KUB), 06/13/2020, 13:11. FINDINGS: Image quality: Excellent. Lung bases: Unremarkable. Heart: No significant findings. URINARY: Right Kidney: No stones or hydronephrosis. Simple renal cyst is present. Right Ureter: No hydroureter. Left Kidney: Simple renal cysts are present. There is a 5 mm calcification, Hounsfield units 610 in the inferior left renal pole. In addition, there is a 7 mm, Hounsfield units 589 calcification in the renal pelvis. No obstruction. Left Ureter: No hydroureter. Bladder: Normal wall thickness. No stones. ABDOMEN: Liver: Liver is enlarged measuring 18.2 cm with steatosis. Gallbladder: Unremarkable. Biliary ducts: Unremarkable. Pancreas: Unremarkable. Spleen: Unremarkable. Adrenal Glands: Unremarkable. Stomach and Bowel: Stomach, small bowel loops, and colon are unremarkable. Colonic diverticula without inflammatory change. Peritoneum: No abnormal intraperitoneal fluid. No free air. Ventral Wall: Fat containing ventral hernia. Abdominal Nodes: No enlarged retroperitoneal or mesenteric lymph nodes. Vessels: Aorta and inferior vena cava are normal in size. PELVIS: Pelvic Organs: Prostate gland is prominent. Pelvic Nodes: Unremarkable. Miscellaneous: No inguinal hernias are seen. Bones: Unremarkable. IMPRESSION: Nonobstructing left renal calculi. Diverticulosis. Dictated by: Alberta Church M.D. on 06/02/2022 at 8:56 Approved by: Alberta Church M.D. on 06/02/2022 at 9:04
== END ==
PROVIDERS: PCP Family Medicine; Referring Provider Urology; Visit Provider Urology
DX: K57.90 Diverticulosis of intestine, part unspecified, without perforation or abscess without bleeding (principal); N20.0 Calculus of kidney; N28.1 Cyst of kidney, acquired; K43.9 Ventral hernia without obstruction or gangrene; K76.0 Fatty (change of) liver, not elsewhere classified; Z87.442 Personal history of urinary calculi
CPT/HCPCS: 74176

== ENCOUNTER → 2022-06-22 10:43 | Outpatient (CLI) | payer OTHER, SELFPAY ==
[2022-06-22 11:23] LABS: COVID19 -Nasal RAPID Negative (Negative)
== END ==
PROVIDERS: PCP Family Medicine; Visit Provider Urology
DX: N20.0 Calculus of kidney (principal); R31.29 Other microscopic hematuria; Q54.1 Hypospadias, penile; Z87.710 Personal history of (corrected) hypospadias; Z20.822 Contact with and (suspected) exposure to COVID-19
CPT/HCPCS: 81002; 87635

== ENCOUNTER 2022-06-23 10:24 | Day surgery (SDC) | payer OTHER, SELFPAY ==
[2022-06-18 15:05] VITALS: BMI 35.3
[2022-06-23] VITALS (11 sets, daily range): BP systolic 159–197; BP diastolic 99–132; PULSE 58–75; RESP 14–20; TEMP 36.1–36.6; O2SAT 92–99; BMI 35.3
[2022-06-23] MEDS: LACTATED RINGERS 1,000 ML 21 ML IV (11:39)
--- NOTE | 2022-06-23 12:01 | PM.PREOP ---
Pre-operative Note COVID-19 COVID-19 status: Negative Result date/Date tested (Pos, Neg/Pending): 06/22/22 Criteria for continued procedure: Non-surgical alternatives not available or appropriate per current SOC Interval Note History & Physical reviewed/Exam performed by Physician: Yes Changes to H&P: No
[2022-06-23] MEDS: CIPROFLOXACIN 400 MG/200 ML PIGGYBACK 200 MG IV (12:50)
--- NOTE | 2022-06-23 13:20 | SUR.OPER ---
Lithotomy on ESWL bed, head on gel donut, arms padded with gel pad at <90 degrees abduction, tucked at sides. Legs secured in padded yellow fins stirrups. 2nd position for ESWL, patient moved upwards in the bed and bilateral legs on padded ESWL bed extention. Patients glasses brought with patient to OR then to PACU.
--- NOTE | 2022-06-23 14:22 | P.OP_ITS ---
Procedure & Clinicians Procedure: Cystoscopy with left ureteral stent placement and left extracorporeal shockwave lithotripsy Same procedure as scheduled: Yes Indications: This 51-year-old male was found to have 2 left renal calculi. And presents this time for the above procedure. Surgeon: Ronnie Borrero Click Yes if Unassisted: Yes Anesthesia Type: General Operative Notes Findings: Findings: Patient with penoscrotal hypospadias with multiple repairs. He has fistula and some degree of narrowing but it did easily accepted 21 Bolivian scope. The ureteral orifices were in proximally normal position with clear efflux. There was a small stone the bladder which was removed and sent for pathologic analysis and composition analysis. A 7 [place]ian by multi length stent was left in the left collecting system without a string. The patient received to his 2 stones the 1st being a UPJ stone 1000 shocks at level 7 which completely fragment in the stone and then another 750 shock waves to a mid to lower pole calyceal stone which also fragmented it quite well. There were no other abnormalities. Closure Type: not applicable Specimen(s): other (Bladder calculus for compositional analysis) Applied: other (7 [place]ivian by multi length stent left collecting system no string) Estimated Blood Loss (mL): 0 Blood products transfused: none Procedure in detail: Procedure in detail: After informed consent was obtained, the patient was identified and brought to the operating room Wilson placed in a supine position on the Lithotripter. Antibiotics were administered, anesthesia was induced and maintained. Ensuring an adequate level of anesthesia the patient was transitioned to the lithotomy position where he was prepped, draped and prepared for transurethral procedure. After prepping draping and time-out a 21 Bolivian cystoscope was passed through the urethra and into the bladder. The cystoscopy was performed the left renal orifice identified and a guidewire passed up in in the left collecting system under fluoroscopic visualization. Stent was then passed over the wire in a coaxial fashion position in renal pelvis under fluoroscopic visualization in the bladder under direct vision. The grasping forceps was inserted the stent was grasped with a nylon heart was removed leaving the stent in good position. The bladder was drained and the scope was removed. Patient then had the UPJ stone targeted be the imaging system and shock waves delivered at level 7 with periodic reimaging 3 localization to ensure maximal energy delivery to the stone at a 1000 shock waves it appeared the stone was well fragmented and the shockwave head was rotated out and fluoroscopic visualization excellent fragmentation was noted. The mid to lower pole stone was then targeted via the imaging system and shock waves delivered at level 7 for a total of 750 shocks and again the shockwave head was rotated out fluoroscopic visualization revealed the stone to be fragmented. At this point the patient was awakened taken to the postanesthesia care unit having tolerated the procedure well there were no complications. Complications: none Post-operative Condition: stable Disposition: PACU Plan for aftercare: Patient is to strain his urine save any fragments and bring them to follow-up patient will follow up my office in approximately 14 days.
--- NOTE | 2022-06-23 14:54 | SUR.PHASEI ---
Addendum entered by Josseline Polo R.N. 06/23/22 15:39: 1535 - Blood pressure now 165/108 which is close to patient's baseline on admit. Denies vision changes, headache, or any other hyptertension symptoms. Dr. Marks updated and stated that patient may now discharge with current blood pressure and instructions to take home medications when he gets home. Patient educated and states he will take his medications when he gets home. Original Note: Upon arrival to pacu patient alert and oriented. Blood pressure noted to be 197/[address] Marks at bedside. Dr. Marks gave 10mg labetalol IV and orders that patient may discharge home when diastolic is less than 100. Patient states he will take home medications when he gets home.
[2022-06-23] MEDS: LABETALOL 20 MG/4 ML SYRINGE 10 MG IV ×2 (15:07→15:24)
[2022-06-23] MEDS: PHENAZOPYRIDINE 100 MG TABLET 200 MG PO (15:20)
[2022-07-01 06:45] LABS: Size 2X2; Stone Analysis Source URINARY BLADDER
[2022-07-01 06:46] LABS: Uric Acid 100%
== END 2022-06-23 16:21 | disposition home or self-care (01) ==
PROVIDERS: PCP Family Medicine; Referring Provider Urology; Visit Provider Urology
PROC: (CPT 50590; principal; 2022-06-23 12:30)
PROC: (CPT 50590; 2022-06-23 12:30)
DX: N20.0 Calculus of kidney (principal); R31.29 Other microscopic hematuria; Z87.710 Personal history of (corrected) hypospadias
CPT/HCPCS: 50590; 52332; 82365; 82962; J0744; J1100; J2250; J2405; J2704; J3010

== ENCOUNTER → 2022-07-07 09:27 | Outpatient (CLI) | payer OTHER, SELFPAY ==
--- NOTE | 2022-07-07 09:28 | DI.RAD.S_ITS ---
PROCEDURE: XR KUB INDICATIONS: kidney stones TECHNIQUE: One view of the abdomen acquired. COMPARISON: [facility], CT, CT KIDNEY URETER BLADDER (KUB), 06/02/2022, 8:51. [facility], CR, XR KUB, 05/07/2022, 11:36. FINDINGS: Surgical changes and devices: Left ureteral stent. Bowel: Bowel gas pattern is nonobstructive. Soft tissues: A 6 mm calcification projects next to the mid aspect of the left ureteral stent. Bones: No suspicious bony lesions. IMPRESSION: Interval placement of a left ureteral stent. A 6 mm calcification projects adjacent to the mid aspect of the stent, indeterminate for a ureteral stone or other nonspecific calcification such as vascular calcification. Dictated by: Daniel Krishnamurthy M.D. on 07/07/2022 at 13:01 Approved by: Daniel Krishnamurthy M.D. on 07/07/2022 at 13:03
== END ==
PROVIDERS: PCP Family Medicine; Referring Provider Urology; Visit Provider Urology
DX: N20.0 Calculus of kidney (principal); Z96.0 Presence of urogenital implants
CPT/HCPCS: 74018

== ENCOUNTER → 2022-07-24 14:21 | Outpatient (CLI) | payer OTHER, SELFPAY ==
--- NOTE | 2022-07-24 14:23 | DI.RAD.S_ITS ---
PROCEDURE: XR KUB INDICATIONS: prior to stent removal/kidney stones/post procedure TECHNIQUE: One view of the abdomen acquired. COMPARISON: [facility], CR, XR KUB, 07/07/2022, 9:31. FINDINGS: Surgical changes and devices: Left-sided ureteral stent is again seen and unchanged. Bowel: Bowel gas pattern is normal. Soft tissues: Previously described 6 millimeter calcification lateral to mid stent is again noted and is grossly unchanged. Visualized solid organ contours appear normal in size. Bones: No suspicious bony lesions. IMPRESSION: No interval changes in appearance of calcification adjacent to mid left ureteral stent. No new calcifications are seen. No gross peritoneal free air. Dictated by: Donaldo Nguyễn M.D. on 07/24/2022 at 15:05 Approved by: Donaldo Nguyễn M.D. on 07/24/2022 at 15:08
== END ==
PROVIDERS: PCP Family Medicine; Referring Provider Urology; Visit Provider Urology
DX: N20.0 Calculus of kidney (principal); Z96.0 Presence of urogenital implants; Z87.710 Personal history of (corrected) hypospadias
CPT/HCPCS: 74018; 81002; 99213

== ENCOUNTER → 2022-08-21 14:30 | Outpatient (CLI) | payer OTHER, SELFPAY ==
--- NOTE | 2022-08-21 | DI.CT.S_ITS ---
PROCEDURE: CT KIDNEY URETER BLADDER (KUB) INDICATIONS: Calculus of ureter/kidney TECHNIQUE: Axial sections were acquired from the lung bases to the pubic symphysis. Coronal and sagittal reformats were performed. For radiation dose reduction, the following was used: automated exposure control, adjustment of mA and/or kV according to patient size. COMPARISON: [facility], CT, CT KIDNEY URETER BLADDER (KUB), 06/02/2022, 8:51. [facility], CT, CT KIDNEY URETER BLADDER (KUB), 06/13/2020, 13:11. [facility], CR, XR KUB, 07/24/2022, 14:43. FINDINGS: Image quality: Excellent. Lung bases: Unremarkable. Heart: No significant findings. URINARY: Right Kidney: No stones or hydronephrosis. There is a water density cyst seen on the right anteriorly, measuring 5.5 cm. Right Ureter: No hydroureter. Left Kidney: A right-sided double-J stent is seen in place. Prominence of the left renal collecting system is seen, which is similar to the prior examination. Apparent peripelvic cysts are also seen. Left-sided stone fragments are seen, which measure 4 mm, when measured together. Left Ureter: No hydroureter. Bladder: Normal wall thickness. No stones. ABDOMEN: Liver: Unremarkable. Gallbladder: Unremarkable. Biliary ducts: Unremarkable. Pancreas: Unremarkable. Spleen: Unremarkable. Adrenal Glands: Unremarkable. Stomach and Bowel: Stomach, small bowel loops, and colon are unremarkable. Colonic diverticulosis is seen, without findings of active diverticulitis. Peritoneum: No abnormal intraperitoneal fluid. No free air. Ventral Wall: No hernia. Abdominal Nodes: No enlarged retroperitoneal or mesenteric lymph nodes. Vessels: Aorta and inferior vena cava are normal in size. Atherosclerotic calcification is noted. PELVIS: Pelvic Organs: Unremarkable. Pelvic Nodes: Unremarkable. Miscellaneous: There is a fat containing left inguinal hernia. Bones: At least 1 remote, healing right-sided rib fracture can be seen. Focal L3-L4 degenerative change is seen. Milder degenerative changes are seen elsewhere. IMPRESSION: There is a left-sided double-J stent seen in place. There is prominence of left renal collecting system, which is similar to the prior. Nonobstructing left-sided kidney stone fragments are seen. Additional findings: At least 1 remote, healing right-sided rib fracture Simple appearing bilateral renal cysts Diverticulosis, without active diverticulitis Focal L3-L4 degenerative change Fat containing left inguinal hernia Dictated by: Henok Ward M.D. on 08/21/2022 at 14:31 Approved by: Henok Ward M.D. on 08/21/2022 at 14:34
== END ==
PROVIDERS: PCP Family Medicine; Referring Provider Urology; Visit Provider Urology
DX: N20.2 Calculus of kidney with calculus of ureter (principal); K40.90 Unilateral inguinal hernia, without obstruction or gangrene, not specified as recurrent; N28.1 Cyst of kidney, acquired; K57.90 Diverticulosis of intestine, part unspecified, without perforation or abscess without bleeding; M47.816 Spondylosis without myelopathy or radiculopathy, lumbar region; S22.31XD Fracture of one rib, right side, subsequent encounter for fracture with routine healing; Z96.0 Presence of urogenital implants
CPT/HCPCS: 74176

== ENCOUNTER → 2022-08-26 10:41 | Outpatient (CLI) | payer OTHER, SELFPAY ==
[2022-08-26 11:12] LABS: Appearance Urine UA CLOUDY; Bilirubin Urine UA NEGATIVE (NEGATIVE); Color Urine UA BROWN; Glucose Urine UA NEGATIVE (Negative); Ketones Urine UA NEGATIVE (NEGATIVE); Leukocyte Esterase Urine UA TRACE (NEGATIVE); Nitrite Urine UA NEGATIVE (Negative); Occult Blood Urine UA 3+ (Negative); Protein Urine UA 2+ (Negative); Specific Gravity Urine UA 1.025 (1.000-1.035); Urobilinogen Urine UA 0.2 E.U./dL (0.2)
[2022-08-26 11:21] LABS: RBC Urine 30-100/HPF (0-5/HPF); Squamous Epithelial Cell Urine 0-1 /HPF (0-5/HPF); WBC Urine 1-5/HPF (0-5/HPF)
[2022-08-26 11:22] LABS: Bacteria Urine None Seen; Culture Indicated Urine Specimen Cultured
== END ==
PROVIDERS: PCP Family Medicine; Visit Provider Urology
DX: N20.0 Calculus of kidney (principal); Z96.0 Presence of urogenital implants
CPT/HCPCS: 52310; 81001; 87086

== ENCOUNTER → 2022-11-27 09:38 | Outpatient (CLI) | payer OTHER, SELFPAY ==
[2022-11-27 19:14] LABS: Appearance Urine UA CLEAR; Bilirubin Urine UA NEGATIVE (NEGATIVE); Color Urine UA YELLOW; Glucose Urine UA NEGATIVE (Negative); Ketones Urine UA NEGATIVE (NEGATIVE); Leukocyte Esterase Urine UA NEGATIVE (NEGATIVE); Nitrite Urine UA NEGATIVE (Negative); Occult Blood Urine UA NEGATIVE (Negative); Protein Urine UA TRACE (Negative); Urobilinogen Urine UA 0.2 E.U./dL (0.2)
[2022-11-27 19:24] LABS: Bacteria Urine None Seen; Culture Indicated Urine Cult Not Indicated; RBC Urine None Seen (0-5/HPF); WBC Urine None Seen (0-5/HPF)
== END ==
PROVIDERS: Orthopaedic Surgery; PCP Family Medicine; Visit Provider Family Medicine
DX: N35.914 Unspecified anterior urethral stricture, male (principal)
CPT/HCPCS: 81001

== ENCOUNTER → 2023-04-21 09:58 | Outpatient (CLI) | payer OTHER, SELFPAY ==
[2023-04-21 20:24] LABS: Add Manual Diff / Slide Review NO; Basophils Absolute Auto 0 /uL (0-100); Basophils Percent Auto 0.3 % (0-2); Eosinophils Absolute Auto 100 /uL (0-450); Eosinophils Percent Auto 1.6 % (2-4); Hematocrit 48.9 % (41-53); Hemoglobin 16.5 g/dL (13.5-17.5); Lymphocytes Absolute Auto 1500 /uL (1100-4500); Mean Corpuscular HGB Conc 33.7 % (30-36); Mean Corpuscular Hemoglobin 31.8 PG (26-34); Mean Corpuscular Volume 94.3 fL (80-100); Monocytes Absolute Auto 500 /uL (0-900); Monocytes Percent Auto 7.1 % (3-14); Neutrophils Absolute Auto 4600 /uL (1500-7000); Platelet Count 174 X10^3/uL (150-400); Red Blood Cell Count 5.19 X10^6/uL (4.5-5.9); Red Cell Distribution Width 14.6 % (11.6-14.8); White Blood Cell Count 6.7 X10^3/uL (4.5-11.0)
[2023-04-21 20:30] LABS: Hemoglobin A1C% w Est Avg Glu 5.2 % (4.0-6.0)
[2023-04-21 20:43] LABS: Alanine Aminotransferase 35 IU/L (<50); Albumin 4.4 g/dL (3.5-5.0); Albumin Globulin Ratio 1.4 (1.0-2.8); Alkaline Phosphatase 83 U/L (38-126); Aspartate Aminotransferase 33 IU/L (17-59); BUN Creatinine Ratio 19.8 (6-22); Bilirubin Total 0.9 mg/dL (0.2-1.3); Blood Urea Nitrogen 18 mg/dL (9-20); Calcium 9.5 mg/dL (8.4-10.2); Carbon Dioxide 25 mmol/L (22-32); Chloride 103 mmol/L (98-107); Cholesterol 124 mg/dL (140-199); Estimated Glomerular Filt Rate > 60 mL/min (>60); Globulin 3.2 g/dL (1.7-4.1); Glucose 103 mg/dL (70-100); HDL Cholesterol 40 mg/dL (40-60); HEMOLYSIS 30 (0-50); LDL Cholesterol Calculated 65 mg/dL (<100); Potassium 4.5 mmol/L (3.4-5.1); Sodium 140 mmol/L (137-145); Total Protein 7.6 g/dL (6.3-8.2); Triglycerides 97 mg/dL (35-150)
[2023-04-21 21:04] LABS: Microalbumi Creatinin Ratio Ur 8.6 ug/mg CR (<30); Microalbumin Urine Random 0.6 mg/dL (0-1.6)
== END ==
PROVIDERS: PCP Family Medicine; Visit Provider Family Medicine
DX: E11.51 Type 2 diabetes mellitus with diabetic peripheral angiopathy without gangrene (principal); I10 Essential (primary) hypertension; I70.209 Unspecified atherosclerosis of native arteries of extremities, unspecified extremity
CPT/HCPCS: 80053; 80061; 82043; 82570; 83036; 85025

== ENCOUNTER → 2023-08-24 14:25 | Outpatient (CLI) | payer OTHER, SELFPAY ==
[2023-08-24 20:32] LABS: BUN Creatinine Ratio 30.9 (6-22); Blood Urea Nitrogen 25 mg/dL (9-20); Calcium 10.5 mg/dL (8.4-10.2); Carbon Dioxide 26 mmol/L (22-32); Chloride 102 mmol/L (98-107); Cholesterol 131 mg/dL (140-199); Estimated Glomerular Filt Rate > 60 mL/min (>60); Glucose 111 mg/dL (70-100); HDL Cholesterol 40 mg/dL (40-60); HEMOLYSIS 16 (0-50); LDL Cholesterol Calculated 64 mg/dL (<100); Sodium 140 mmol/L (137-145); Triglycerides 136 mg/dL (35-150)
[2023-08-24 21:27] LABS: HIV 1 & 2 Ab/Ag 4th Gen Combo NEGATIVE (NEGATIVE)
[2023-08-24 22:12] LABS: Urine N gonorrhoeae NOT DETECTED
[2023-08-24 22:15] LABS: Urine Chlamydia NOT DETECTED
[2023-08-26 06:11] LABS: RPR Screen Non Reactive (Non Reactive)
== END ==
PROVIDERS: PCP Family Medicine; Visit Provider Family Medicine
DX: Z11.3 Encounter for screening for infections with a predominantly sexual mode of transmission (principal); N40.0 Benign prostatic hyperplasia without lower urinary tract symptoms; E78.2 Mixed hyperlipidemia; I10 Essential (primary) hypertension
CPT/HCPCS: 80048; 80061; 86592; 87389; 87491; 87591